=== PATIENT | female | born 1955 | race Caucasian/White ===

== ENCOUNTER 2024-10-13 07:21 | Day surgery (SDC) | payer MEDICARE, SELFPAY ==
[2024-10-06 15:36] VITALS: BMI 32.5
[2024-10-08 08:12] VITALS: BMI 32.5
[2024-10-13 07:38] VITALS: BP 130/71; PULSE 59; RESP 16; TEMP 36.2; O2SAT 99; BMI 31.4
[2024-10-13] MEDS: Tetracaine HCl/PF 0.5% Oph Sol 4 ML DROPS 1 DROP EYE-LEFT (07:39)
[2024-10-13] MEDS: Cyclopentolate 1 % Ophth Sol 2 ML DRPBTL 1 DROP EYE-LEFT ×3 (07:40→07:56)
[2024-10-13] MEDS: Tropicamide 1 % Ophth Sol 3 ML BTL 1 DROP EYE-LEFT ×3 (07:42→07:58)
[2024-10-13] MEDS: Ketorolac Tromethamine 0.5% Op 5 ML DROPS 1 DROP EYE-LEFT ×3 (07:44→08:00)
[2024-10-13] MEDS: Phenylephrine HCL 2.5% Oph SoL 2 ML BOTTLE 1 DROP EYE-LEFT ×3 (07:46→08:02)
--- NOTE | 2024-10-13 08:04 | P.CONAN_ITS ---
Documented by User: Merary Maldonado NP 10/09/24 13:22 HPI - Anesthesia Eval Consult details Narrative: 69yo F for Left Cataract Extraction IOL Insertion No previous cataract on record [facility] Past Medical History Medical History (Updated 10/13/24 @ 07:37 by Felicia Addison, RN) Breast CA Pneumonia Atrial arrhythmia Osteoarthritis Diverticulitis Diverticulosis Pancreatic cyst Surgical History Surgical History (Updated 10/13/24 @ 07:36 by Felicia Addison, RN) H/O eye surgery H/O wrist surgery History of left salpingo-oophorectomy History of lumpectomy of right breast History of surgery on extremity Hx of cholecystectomy Social History Social History (Updated 10/06/24 @ 15:35 by Sweta Tripathi RN) Household Members: Spouse Patient Tobacco Use Status: Former Tobacco user Tobacco use type: Cigarette Use of substances other than those prescribed or required for medical reasons: No Zoroastrian Healthcare Practices: Worship Advance Directives Information Provided: Yes Advance Directives on File: No FDLMP: n/a Meds Allergies Allergy/AdvReac Type Severity Reaction Status Date / Time meperidine [From Demerol] Allergy Intermediate Vomiting Verified 10/13/24 07:37 Home Medications ?Medication ?Instructions ?Recorded ?Confirmed ?Last Taken ?Type anastrozole 1 mg tablet 1 mg PO DAILY 10/06/24 10/13/24 Unknown History calcium carbonate (Calcium 600) 600 mg PO DAILY 10/06/24 10/13/24 Unknown History cholecalciferol (vitamin D3) 25 25 mcg PO DAILY 10/06/24 10/13/24 Unknown History mcg (1,000 unit) capsule (Vitamin D3) multivitamin 1 tab PO DAILY 10/06/24 10/13/24 Unknown History Exam Height,Weight and Vital Signs: Height 5 ft Weight 75.478 kg Assessment and Plan Assessment Anesthesia Assessment: Chart Reviewed Documented by User: Chayito [email or web address] DO 10/13/24 08:05 [facility] Past Medical History Medical History (Updated 10/13/24 @ 07:37 by Felicia Addison RN) Breast CA Pneumonia Atrial arrhythmia Osteoarthritis Diverticulitis Diverticulosis Pancreatic cyst Family History Family history of problems with anesthesia: No Surgical History Surgical History (Updated 10/13/24 @ 07:36 by Felicia Addison RN) H/O eye surgery H/O wrist surgery History of left salpingo-oophorectomy History of lumpectomy of right breast History of surgery on extremity Hx of cholecystectomy History of Problems with Anesthesia: No Social History Social History (Updated 10/06/24 @ 15:35 by Sweta Tripathi RN) Household Members: Spouse Patient Tobacco Use Status: Former Tobacco user Tobacco use type: Cigarette Use of substances other than those prescribed or required for medical reasons: No Zoroastrian Healthcare Practices: Worship Advance Directives Information Provided: Yes Advance Directives on File: No FDLMP: n/a Meds Allergies Allergy/AdvReac Type Severity Reaction Status Date / Time meperidine [From Demerol] Allergy Intermediate Vomiting Verified 10/13/24 07:37 Home Medications ?Medication ?Instructions ?Recorded ?Confirmed ?Last Taken ?Type anastrozole 1 mg tablet 1 mg PO DAILY 10/06/24 10/13/24 Unknown History calcium carbonate (Calcium 600) 600 mg PO DAILY 10/06/24 10/13/24 Unknown History cholecalciferol (vitamin D3) 25 25 mcg PO DAILY 10/06/24 10/13/24 Unknown History mcg (1,000 unit) capsule (Vitamin D3) multivitamin 1 tab PO DAILY 10/06/24 10/13/24 Unknown History Exam Exam Date and Time: 10/13/24 0800 Height,Weight and Vital Signs: Height 5 ft Weight 75.478 kg Vital Signs Temperature 97.2 F 10/13/24 07:38 Pulse Rate 59 10/13/24 07:38 Respiratory Rate 16 10/13/24 07:38 Blood Pressure 130/71 10/13/24 07:38 Pulse Oximetry 99 10/13/24 07:38 Oxygen Delivery Method Room Air 10/13/24 07:38 Temperature 97.2 F 10/13/24 07:38 Pulse Rate 59 10/13/24 07:38 Respiratory Rate 16 10/13/24 07:38 Blood Pressure 130/71 10/13/24 07:38 Pulse Oximetry 99 10/13/24 07:38 Oxygen Delivery Method Room Air 10/13/24 07:38 Airway Mallampati Class: I TM Dist: >3cm Neck ROM: Full Loose/Missing/Broken Teeth: No (patient denies any loose or broken teeth) Heart: S1S2 Lungs: CTAB Assessment and Plan Assessment Anesthesia Assessment: Anesthesia Plan Discussed and Chart Reviewed Final Anesthetic Review Family History of Problems with Anesthesia: No History of Problems with Anesthesia: No NPO: Yes ASA Class: II Final Preanesthetic Review: No Changes in Pt Med Stat, Meds/Allgs Chart Reviewed, Consent Obtained/Reviewed and Anes Risks/Benef Reviewed Patient Risk: Low Procedure Risk: Low Anesthetic Plan Anesthetic Plan: MAC: and Agree w/ Assess. and Plan Disposition: Standard PACU
[2024-10-13] MEDS: Lactated Ringers 500 ML 50 ML IV (08:08)
--- NOTE | 2024-10-13 08:16 | MHC.SHP ---
Pre-Procedural Eval Section A - 24 Hr Update-Section A only Date of Service: 10/13/24 The patient is an INPATIENT: No Changes since office visit: No Cold of Flu in the past 2 weeks, No New Medical Problems, No Changes in Medication and No Patient answered all questions The patient has been examined within 24 hours of the surgical procedure. The History & Physical has been completed within 30 days and I have reviewed it.: Yes Section B - Complete if H&P > 30 days Chief Complaint: Age-related nuclear cataract, left eye Allergies: Allergies Allergy/AdvReac Type Severity Reaction Status Date / Time meperidine [From Demerol] Allergy Intermediate Vomiting Verified 10/13/24 07:37 Plan Diagnosis/Plan: Unchanged I have reviewed the history and physical and performed a pertinent physical examination on my patient. No changes have occurred unless specified. Time Spent With Patient Time: Total time managing care of this patient today ____ minutes.
--- NOTE | 2024-10-13 08:16 | HO.PNOPHT ---
Ophthalmology Procedure Procedure Date of Service: 10/13/24 Ophthalmology Viscoelastic: Healon Duet Dual Pack Pro Ophthalmology Lenses: IOL Acrysof MP - MA60AC (22.5) Procedure Notes: PREOPERATIVE DIAGNOSIS: Decreased visual acuity left eye secondary to cataract POSTOPERATIVE DIAGNOSIS: Same PROCEDURE: Left cataract extraction with intraocular lens insertion SURGEON: Leonardo Cooney M.D. ANESTHESIA: Topical/MAC ESTIMATED BLOOD LOSS: None COMPLICATIONS: None After obtaining informed consent, the patient was brought to the operation room suite and placed in the supine position. After adequate sedation per anesthesia, topical drops of Tetracaine were given to the left eye. The eye was then prepped and draped in the usual sterile fashion. The operating room microscope was then positioned over the operative eye and a lid speculum placed. A paracentesis was created. Viscoelastic was then instilled into the anterior chamber. A three plane incision was then created temporally, utilizing a 2.85 mm keratome. Capsulotomy forceps were then utilized to create a circular tear capsulotomy. Hydrodissection and hydrodelineation were carried out until adequate mobilization of the nucleus occurred. Phacoemulsification was then utilized to remove the dense central nucleus followed by removal of the cortical material utilizing the automated aspiration irrigation unit. Viscoat elastic was instilled into the posterior capsular bag followed by placement of a posterior chamber intraocular lens without difficulty. The residual Viscoat elastic was then removed utilizing the automated IA machine. The wound was check and found to be watertight. The patient tolerated the procedure well and the lid speculum was removed. Intracameral injection of Vigamox 0.1 mL followed by a subtenon injection of Kenalog-40 0.2 mL were administered. The patient will be seen in the a.m.
[2024-10-13 08:36] VITALS: BP 115/68; PULSE 60; RESP 18; TEMP 36.6; O2SAT 100
== END 2024-10-13 08:49 | disposition home or self-care (01) ==
PROVIDERS: PCP Internal Medicine; Visit Provider Ophthalmology
PROC: (CPT 66985; principal; 2024-10-13 08:30)
DX: H25.12 Age-related nuclear cataract, left eye (principal); H52.4 Presbyopia; H40.213 Acute angle-closure glaucoma, bilateral; H35.09 Other intraretinal microvascular abnormalities; H18.413 Arcus senilis, bilateral; I49.8 Other specified cardiac arrhythmias; C50.911 Malignant neoplasm of unspecified site of right female breast; Z79.811 Long term (current) use of aromatase inhibitors; Z88.5 Allergy status to narcotic agent; Z79.899 Other long term (current) drug therapy; Z98.890 Other specified postprocedural states; Z87.891 Personal history of nicotine dependence
CPT/HCPCS: 66984; J2250; J3010; J3301; V2630

== ENCOUNTER 2024-10-27 06:41 | Day surgery (SDC) | payer MEDICARE, SELFPAY ==
[2024-10-08 08:15] VITALS: BMI 32.5
[2024-10-27 06:54] VITALS: BMI 32.0
[2024-10-27 07:01] VITALS: BP 136/68; PULSE 63; RESP 16; TEMP 36.5; O2SAT 98
[2024-10-27] MEDS: Lactated Ringers 500 ML 50 ML IV (07:07)
[2024-10-27] MEDS: Tetracaine HCl/PF 0.5% Oph Sol 4 ML DROPS 1 DROP EYE-RIGHT (07:07)
[2024-10-27] MEDS: Tropicamide 1 % Ophth Sol 3 ML BTL 1 DROP EYE-RIGHT ×3 (07:08→07:13)
[2024-10-27] MEDS: Ketorolac Tromethamine 0.5% Op 5 ML DROPS 1 DROP EYE-RIGHT ×3 (07:09→07:13)
[2024-10-27] MEDS: Phenylephrine HCL 2.5% Oph SoL 2 ML BOTTLE 1 DROP EYE-RIGHT ×3 (07:09→07:14)
[2024-10-27] MEDS: Cyclopentolate 1 % Ophth Sol 2 ML DRPBTL 1 DROP EYE-RIGHT ×3 (07:10→07:13)
--- NOTE | 2024-10-27 07:26 | P.CONAN_ITS ---
Documented by User: Merary Maldonado NP 10/23/24 14:02 HPI - Anesthesia Eval Consult details Narrative: 69yo F for Right Cataract Extraction IOL Insertion Left eye 10/13/24: Fent 25, Midaz 2 PMFSH Past Medical History Medical History (Updated 10/13/24 @ 07:37 by Felicia Addison, RN) Breast CA Pneumonia Atrial arrhythmia Osteoarthritis Diverticulitis Diverticulosis Pancreatic cyst Family History Family history of problems with anesthesia: No Surgical History Surgical History (Updated 10/13/24 @ 07:36 by Felicia Addison RN) H/O eye surgery H/O wrist surgery History of left salpingo-oophorectomy History of lumpectomy of right breast History of surgery on extremity Hx of cholecystectomy History of Problems with Anesthesia: No Social History Social History (Updated 10/06/24 @ 15:35 by Sweta Tripathi RN) Household Members: Spouse Patient Tobacco Use Status: Former Tobacco user Tobacco use type: Cigarette Use of substances other than those prescribed or required for medical reasons: No Muslim Healthcare Practices: Orthodoxy Are you DNR?: No Advance Directives Information Provided: Yes Advance Directives on File: No Patient : No FDLMP: n/a : No Poor oral hygiene: No Meds Allergies Allergy/AdvReac Type Severity Reaction Status Date / Time meperidine [From Demerol] Allergy Intermediate Vomiting Verified 10/13/24 07:37 Home Medications ?Medication ?Instructions ?Recorded ?Confirmed ?Last Taken ?Type anastrozole 1 mg tablet 1 mg PO DAILY 10/06/24 10/13/24 Unknown History calcium carbonate (Calcium 600) 600 mg PO DAILY 10/06/24 10/13/24 Unknown History cholecalciferol (vitamin D3) 25 25 mcg PO DAILY 10/06/24 10/13/24 Unknown History mcg (1,000 unit) capsule (Vitamin D3) multivitamin 1 tab PO DAILY 10/06/24 10/13/24 Unknown History Exam Height,Weight and Vital Signs: Height 5 ft Weight 75.478 kg Assessment and Plan Assessment Anesthesia Assessment: Chart Reviewed Final Anesthetic Review Family History of Problems with Anesthesia: No History of Problems with Anesthesia: No Documented by User: Chayito Garcia DO 10/27/24 07:27 [facility] Past Medical History Medical History (Updated 10/13/24 @ 07:37 by Felicia Addison, RN) Breast CA Pneumonia Atrial arrhythmia Osteoarthritis Diverticulitis Diverticulosis Pancreatic cyst Family History Family history of problems with anesthesia: No Surgical History Surgical History (Updated 10/13/24 @ 07:36 by Felicia Addison RN) H/O eye surgery H/O wrist surgery History of left salpingo-oophorectomy History of lumpectomy of right breast History of surgery on extremity Hx of cholecystectomy History of Problems with Anesthesia: No Social History Social History (Updated 10/06/24 @ 15:35 by Sweta Tripathi RN) Household Members: Spouse Patient Tobacco Use Status: Former Tobacco user Tobacco use type: Cigarette Use of substances other than those prescribed or required for medical reasons: No Muslim Healthcare Practices: Orthodoxy Are you DNR?: No Advance Directives Information Provided: Yes Advance Directives on File: No Patient : No FDLMP: n/a : No Poor oral hygiene: No Meds Allergies Allergy/AdvReac Type Severity Reaction Status Date / Time meperidine [From Demerol] Allergy Intermediate Vomiting Verified 10/13/24 07:37 Home Medications ?Medication ?Instructions ?Recorded ?Confirmed ?Last Taken ?Type anastrozole 1 mg tablet 1 mg PO DAILY 10/06/24 10/13/24 Unknown History calcium carbonate (Calcium 600) 600 mg PO DAILY 10/06/24 10/13/24 Unknown History cholecalciferol (vitamin D3) 25 25 mcg PO DAILY 10/06/24 10/13/24 Unknown History mcg (1,000 unit) capsule (Vitamin D3) multivitamin 1 tab PO DAILY 10/06/24 10/13/24 Unknown History Exam Exam Date and Time: 10/27/24724 Height,Weight and Vital Signs: Height 5 ft Weight 75.478 kg Vital Signs Temperature 97.7 F 10/27/24 07:01 Pulse Rate 63 10/27/24 07:01 Respiratory Rate 16 10/27/24 07:01 Blood Pressure 136/68 10/27/24 07:01 Pulse Oximetry 98 10/27/24 07:01 Oxygen Delivery Method Room Air 10/27/24 07:01 Temperature 97.7 F 10/27/24 07:01 Pulse Rate 63 10/27/24 07:01 Respiratory Rate 16 10/27/24 07:01 Blood Pressure 136/68 10/27/24 07:01 Pulse Oximetry 98 10/27/24 07:01 Oxygen Delivery Method Room Air 10/27/24 07:01 Airway Mallampati Class: I TM Dist: >3cm Neck ROM: Full Loose/Missing/Broken Teeth: No (patient denies any loose or broken teeth) Heart: S1S2 Lungs: CTAB Assessment and Plan Assessment Anesthesia Assessment: Anesthesia Plan Discussed and Chart Reviewed Final Anesthetic Review Family History of Problems with Anesthesia: No History of Problems with Anesthesia: No NPO: Yes ASA Class: II Final Preanesthetic Review: No Changes in Pt Med Stat, Meds/Allgs Chart Reviewed, Consent Obtained/Reviewed and Anes Risks/Benef Reviewed Patient Risk: Low Procedure Risk: Low Anesthetic Plan Anesthetic Plan: MAC: and Agree w/ Assess. and Plan Disposition: Standard PACU
--- NOTE | 2024-10-27 07:51 | MHC.SHP ---
Pre-Procedural Eval Section A - 24 Hr Update-Section A only Date of Service: 10/27/24 The patient is an INPATIENT: No Changes since office visit: No Cold of Flu in the past 2 weeks, No New Medical Problems, No Changes in Medication and No Patient answered all questions The patient has been examined within 24 hours of the surgical procedure. The History & Physical has been completed within 30 days and I have reviewed it.: Yes Section B - Complete if H&P > 30 days Chief Complaint: Age-related nuclear cataract, right eye Allergies: Allergies Allergy/AdvReac Type Severity Reaction Status Date / Time meperidine [From Demerol] Allergy Intermediate Vomiting Verified 10/13/24 07:37 Plan Diagnosis/Plan: Unchanged I have reviewed the history and physical and performed a pertinent physical examination on my patient. No changes have occurred unless specified. Time Spent With Patient Time: Total time managing care of this patient today ____ minutes.
--- NOTE | 2024-10-27 07:52 | HO.PNOPHT ---
Ophthalmology Procedure Procedure Date of Service: 10/27/24 Ophthalmology Viscoelastic: Healon Duet Dual Pack Pro Ophthalmology Lenses: IOL Acrysof MP - MA60AC (22) Procedure Notes: PREOPERATIVE DIAGNOSIS: Decreased visual acuity right eye secondary to cataract POSTOPERATIVE DIAGNOSIS: Same PROCEDURE: Right cataract extraction with intraocular lens insertion and synichialysis SURGEON: Leonardo Cooney M.D. ANESTHESIA: Topical/MAC ESTIMATED BLOOD LOSS: None COMPLICATIONS: None After obtaining informed consent, the patient was brought to the operating room suite and placed in the supine position. After adequate sedation per anesthesia, topical drops of Tetracaine were given to the right eye. The eye was then prepped and draped in the usual sterile fashion. The operating room microscope was then positioned over the operative eye and a lid speculum placed. A paracentesis was created. Viscoelastic was then instilled into the anterior chamber. A three plane incision was then created temporally, utilizing a 2.85 mm keratome. Followed by a synichialysis. Capsulotomy forceps were then utilized to create a circular tear capsulotomy. Hydrodissection and hydrodelineation were carried out until adequate mobilization of the nucleus occurred. Phacoemulsification was then utilized to remove the dense central nucleus followed by removal of the cortical material utilizing the automated aspiration irrigation unit. Viscoelastic was instilled into the posterior capsular bag followed by placement of a posterior chamber intraocular lens without difficulty. The residual Viscoelastic was then removed utilizing the automated IA machine. The wound was checked and found to be watertight. The patient tolerated the procedure well and the lid speculum was removed. Intracameral injection of Vigamox 0.1 mL followed by a subtenon injection of Kenalog-40 0.2 mL were administered. The patient will be seen in the a.m.
[2024-10-27 08:24] VITALS: BP 114/61; PULSE 59; RESP 18; TEMP 36.2; O2SAT 99
== END 2024-10-27 08:32 | disposition home or self-care (01) ==
PROVIDERS: PCP Internal Medicine; Visit Provider Ophthalmology
PROC: (CPT 66985; principal; 2024-10-27 08:00)
DX: H25.11 Age-related nuclear cataract, right eye (principal); H52.4 Presbyopia; H40.213 Acute angle-closure glaucoma, bilateral; H35.09 Other intraretinal microvascular abnormalities; H18.413 Arcus senilis, bilateral; I49.8 Other specified cardiac arrhythmias; K57.30 Diverticulosis of large intestine without perforation or abscess without bleeding; K86.2 Cyst of pancreas; Z87.19 Personal history of other diseases of the digestive system; C50.911 Malignant neoplasm of unspecified site of right female breast; Z79.811 Long term (current) use of aromatase inhibitors; Z79.899 Other long term (current) drug therapy; Z88.5 Allergy status to narcotic agent; Z90.49 Acquired absence of other specified parts of digestive tract; Z98.890 Other specified postprocedural states; Z87.891 Personal history of nicotine dependence
CPT/HCPCS: 66984; J2250; J2704; J3010; J3301; V2630